=== PATIENT | female | born 1985 | race Caucasian/White ===

== ENCOUNTER 2023-11-21 09:16 | Outpatient (AMB) | payer OTHER, SELFPAY ==
--- NOTE | 2023-11-21 10:29 | AM.OFFWIN_ITS ---
Intake Vital Signs 3 11/21/23 10:30 Height 5 ft 7 in Weight 187 lb BMI 29.3 BP 136/70 Blood Pressure Location Lt brachial Position Sitting Pulse 88 Pulse Source Pulse Oximeter Temp 97.4 F Temp Source Temporal Artery Scan Pulse Oximetry (%) 98 Oxygen Delivery Method Room Air Intake Visit Reasons: PLASTICS ENGINEER Face rash Intake Note: pt is here today for face rash started Tuesday Patient Tobacco Use Status: Never used Tobacco Allergies No Known Allergies Allergy (Mild, Verified 11/21/23 11:11) NOT APPLICABLE Medication List - Last Reconciled 11/21/23 by David Romero MD No Known Home Meds Do you need a note to return to daycare/school/sports/work: No HPI PLASTICS ENGINEER Face rash 2 HPI0 Details 38-year-old female presents to the [facility] for a sick visit. Patient has an extensive rash on the face that she would like evaluated. Patient has history of cystic acne and has taken Accutane in the past. The rash worsened over the past 2-1/2 weeks. there is oozing from the lesions on the face. Face is swollen up and has difficulty wearing glasses. PFSH Social History Patient Tobacco Use Status: Never used Tobacco Physical Exam Vital Signs: Last Vital Signs Temp 97.4 F 11/21/23 10:30 Pulse 88 11/21/23 10:30 BP 136/70 11/21/23 10:30 Pulse Ox 98 11/21/23 10:30 Oxygen Delivery Method Room Air 11/21/23 10:30 BMI result Body Mass Index 29.3 Skin Other: Erythematous rash on the right and left cheeks, pustular lesions and [place] yellow scales present. Assessment & Plan Assessment & Plan (1) Cystic acne: Code(s): L70.0 - Acne vulgaris Plan: Patient has widespread cystic acne which has gotten secondarily infected. Keflex for 10 days has been prescribed. Benzoyl peroxide face wash has been prescribed. Prednisone to reduce the swelling has been prescribed for 3 days. 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 Coding Level of Care Code Est Pt Level 4 (41788) Diagnoses Cystic acne L70.0
[2023-11-21 10:30] VITALS: BP 136/70; PULSE 88; TEMP 36.3; O2SAT 98; BMI 29.3
== END 2023-11-21 14:44 | disposition home or self-care (01) ==
PROVIDERS: Visit Provider Internal Medicine
DX: L70.0 Acne vulgaris (principal)
CPT/HCPCS: 99214